=== PATIENT | male | born 1955 | race Caucasian/White ===

== ENCOUNTER → 2016-09-26 | Day surgery (SDC) | payer OTHER ==
[~2016-09-26] VITALS: Ht 175.3 cm; Wt 79.4 kg
--- NOTE | 2016-09-26 12:55 | Operative Report ---
Operative/Inv Procedure Report Surgery Date: 09/26/16 Name of Procedure: Laparoscopic bilateral inguinal hernia repair Pre-Operative Diagnosis: Bilateral inguinal hernia Post-Operative Diagnosis: Same Estimated Blood Loss: scant Surgeon/[employer] Arc: JAZMIN ROWAN,SHABANA Stanford/Perla SCHERER Anesthesia: general endotracheal tube Implants: Parietex mesh Operative/Procedure Note Note: After consent patient is brought to the operating room laid supine. General anesthesia was obtained and the abdomen was prepped and draped. Skin was anesthetized with local anesthesia and a transverse infraumbilical incision made sharply. We identified the rectus fascia and incised transversely. Stay sutures were placed. Rectus muscle was retracted laterally and a dissecting balloon placed posterior to it. It was inflated under direct vision the camera and replaced with a blunt Rodriguez port. Gas was instilled. 2, 5 mm ports were placed in the infraumbilical midline after local anesthesia was instilled and under direct vision and camera. Began our dissection at the pubis and delineated the symphysis. Gianni's ligament was identified and cleared. There was a moderate sized right sided direct hernia. Hernia was reduced and reflected inferiorly. Then dissected laterally and developed the iliopubic tract. The cord structures were circumferentially dissected. Once the dissection was completed a right -sided piece of Parietex mesh was placed in the cavity. It was placed around the cord structures re-create the internal ring and cover the femoral and direct spaces as well. It was tacked to Gianni's ligament and superior medially to keep it in normal position. We then turned attention to the contralateral side. In a similar fashion coopers ligament was delineated. There was a large femoral hernia. There is no indirect or direct hernia. Dissection the cord structures carried out similarly. Placement of left-sided mesh was performed similarly to the right. Once both mesh were in proper position the gas was allowed to escape on maintaining proper orientation of the mesh. The fascia was closed with 0 Vicryl suture. Skin incisions closed with 4-0 Vicryl. Steri-Strips and sterile dressing applied. Sponge and needle counts are correct. Findings: Right direct, left femoral CC: SOMMER ROWAN,ADELITA
== END ==
LOC: STS 01:56
DX: K40.20 Bilateral inguinal hernia, without obstruction or gangrene, not specified as recurrent (principal); J44.9 Chronic obstructive pulmonary disease, unspecified; J45.909 Unspecified asthma, uncomplicated; F17.210 Nicotine dependence, cigarettes, uncomplicated; M19.90 Unspecified osteoarthritis, unspecified site; R06.00 Dyspnea, unspecified
CPT/HCPCS: 1263; C1781; J0131; J2250